=== PATIENT | female | born 1980 | race Caucasian/White ===

== ENCOUNTER → 2017-12-10 | Outpatient (CLI) | payer OTHER | END | disposition home or self-care (01) | LOC: KCIC 15:04 | DX: J45.909 Unspecified asthma, uncomplicated (principal); R91.8 Other nonspecific abnormal finding of lung field; R50.9 Fever, unspecified | CPT/HCPCS: 71046 ==

== ENCOUNTER → 2018-06-15 | Outpatient (CLI) | payer OTHER ==
[2016-06-15 01:49] VITALS: BP 158/89
--- NOTE | 2018-06-15 16:43 | KCIC ---
MR of the left knee Indication: Pain. Technique: The standard multiplanar sequences are obtained. FINDINGS: Artifact: No significant image degradation. Medial meniscus:Intact. Lateral meniscus: Intact. Anterior cruciate ligament: Intact Posterior cruciate ligament: Intact Medial collateral ligament: Intact. Lateral structures: * Iliotibial band: Intact. * Lateral collateral ligament: Intact. * Biceps femoris tendon: Intact * Popliteus tendon attachment: Intact Extensive mechanism: * Patellar tendon: Mild proximal tendinosis. * Quadriceps tendon: Intact * Retinacular structures: Intact Fluid: Trace joint effusion. No significant Sosa's cyst. Intra-articular bodies: None visualized Joint compartments * patellofemoral joint: Subchondral defect at the superolateral patella, appears filled with cartilage, likely a developmental variant. No acute marrow edema. Femoral trochlea intact. * medial compartment:Intact * lateral compartment:Intact Bones: No significant lesion or acute fracture. Soft tissue: Unremarkable Impression: 1. No meniscal tear or internal derangement. 2. Dorsal defect of the patella, typically a benign variant. Electronically signed by: Chicho Parra MD (06/15/2018 4:39 PM) [id number]
== END | disposition home or self-care (01) ==
LOC: KCIC MRI 14:25
PROVIDERS: ATTEND Orthopaedic Surgery
DX: M25.462 Effusion, left knee (principal); M25.562 Pain in left knee; I10 Essential (primary) hypertension; E78.00 Pure hypercholesterolemia, unspecified; J45.909 Unspecified asthma, uncomplicated; K21.9 Gastro-esophageal reflux disease without esophagitis; Z88.1 Allergy status to other antibiotic agents
CPT/HCPCS: 73721